=== PATIENT | female | born 2000 | race Two or more races ===

== ENCOUNTER → 2024-09-18 14:09 | Outpatient (CLI) | payer OTHER | END | disposition home or self-care (01) | LOC: PRENATAL 14:09 | PROVIDERS: ATTEND Obstetrics & Gynecology Maternal & Fetal Medicine | DX: O26.849 Uterine size-date discrepancy, unspecified trimester (principal); Z3A.16 16 weeks gestation of pregnancy ==

== ENCOUNTER 2024-10-23 15:31 | Outpatient (CLI) | payer OTHER | END 2024-10-23 15:32 | disposition home or self-care (01) | LOC: PRENATAL 15:31 | PROVIDERS: ATTEND Obstetrics & Gynecology Maternal & Fetal Medicine | DX: O44.00 Complete placenta previa NOS or without hemorrhage, unspecified trimester (principal); Z3A.21 21 weeks gestation of pregnancy ==

== ENCOUNTER 2024-11-26 16:52 | Outpatient (CLI) | payer OTHER | END 2024-11-26 17:47 | disposition home or self-care (01) | LOC: NST 16:52 | PROVIDERS: ATTEND Obstetrics & Gynecology | DX: Z3A.25 25 weeks gestation of pregnancy (principal) ==

== ENCOUNTER 2025-01-07 10:36 | Emergency (ER) | payer OTHER ==
[~2025-01-07] VITALS: Ht 157.5 cm; Wt 72.6 kg
[2025-01-07] MEDS ORDERED: PROTONIX20 MG PO (10:46)
[2025-01-07] MEDS ORDERED: ONDANSETRON ODT4 MG PO (10:46)
[2025-01-07] MEDS ORDERED: PRENATAL 19 CH1 EACH PO (10:47)
[2025-01-07] MEDS ORDERED: ONDANSETRON HCL 2 MG/ML VIAL IV ONE (11:30)
[2025-01-07] MEDS ORDERED: ACETAMINOPHEN 500 MG GEL..CAP PO ONE ×2 (11:30→11:49)
[2025-01-07] MEDS ORDERED: ONDANSETRON HCL 2 MG/ML VIAL ONE (11:48)
[2025-01-07 12:50] LABS: BASO % 0.3 % (0.1-1.2); EOS # 0.07 (0.04-0.54); EOS % 0.6 % (0.7-7.0); HEMATOCRIT 30.9 % (34.1-44.9); LYMPH # 1.22 (1.18-3.74); LYMPH % 11.1 % (19.3-53.1); MEAN CORPUSCULAR HEMOGLOBIN 29.5 pg (25.6-32.2); MONO # 1.02 (0.24-0.82); MONO % 9.3 % (4.7-12.5); NEUT # 8.44 (1.56-6.13); NEUT % 76.8 % (34.0-71.1); PLATELET COUNT 189 K/uL (163-369); RED BLOOD COUNT 3.52 M/uL (3.93-5.22); RED CELL DISTRIBUTION WIDTH 12.3 % (11.6-14.4)
[2025-01-07 12:55] LABS: HEMOGLOBIN 10.4 g/dL (11.2-15.7)
[2025-01-07 13:01] LABS: CALCIUM 8.4 mg/dL (8.5-10.1); CREATININE SERUM 0.48 mg/dL (0.55-1.02); GFR 157.58; POTASSIUM 3.75 mEq/L (3.5-5.1)
[2025-01-07 13:45] LABS: COVID-19 AG NEGATIVE (NEGATIVE); INFLUENZA A AG NEGATIVE (NEGATIVE)
[2025-01-07] MEDS ORDERED: AMOX1TAB5 PO (15:05)
[2025-01-07] MEDS ORDERED: ADULT TUSS100 MG/51 PO (15:05)
== END 2025-01-07 15:52 | disposition home or self-care (01) ==
LOC: ER 10:36
PROVIDERS: General Practice
DX: Z34.90 Encounter for supervision of normal pregnancy, unspecified, unspecified trimester (principal); Z3A.30 30 weeks gestation of pregnancy; J00 Acute nasopharyngitis [common cold]; Z20.822 Contact with and (suspected) exposure to COVID-19; Z88.6 Allergy status to analgesic agent

== ENCOUNTER 2025-01-09 15:26 | Outpatient (CLI) | payer OTHER ==
[~2025-01-09 15:26] MED LIST: ADULT TUSS100 MG/51 PO; AMOX1TAB5 PO; ONDANSETRON ODT4 MG PO; PRENATAL 19 CH1 EACH PO; PROTONIX20 MG PO
== END 2025-01-09 15:27 | disposition home or self-care (01) ==
LOC: PRENATAL 15:26
PROVIDERS: ATTEND Obstetrics & Gynecology Maternal & Fetal Medicine
DX: O26.849 Uterine size-date discrepancy, unspecified trimester (principal); O36.8199 Decreased fetal movements, unspecified trimester, other fetus; O99.019 Anemia complicating pregnancy, unspecified trimester; Z3A.32 32 weeks gestation of pregnancy

== ENCOUNTER 2025-01-21 13:53 | Outpatient (CLI) | payer OTHER ==
[2025-01-21 12:51] VITALS: BP 118/75
[2025-01-21] MEDS ORDERED: RINGERS SOLUTION,LACTATED 1,000 ML IV SCH (14:30)
[2025-01-21] MEDS ORDERED: BETAMETHASONE ACETATE,SOD PHOS 30 MG/5 ML ML ONE (14:41)
[2025-01-21] MEDS ORDERED: MAGNESIUM SULFATE IN WATER 0.04 GM/ML IV.SOLN IV ONE (14:42)
[2025-01-21 15:11] LABS: URINE APPEARANCE Clear; URINE BILIRRUBIN Negative (NEGATIVE); URINE BLOOD Negative; URINE COLOR Yellow; URINE GLUCOSE Negative (NEGATIVE); URINE KETONE Negative (NEGATIVE); URINE LEUKOCYTE Negative; URINE NITRATE Negative; URINE PROTEIN Negative (NEGATIVE); URINE UROBILINOGEN 0.2 E.U./dl
[2025-01-21 15:13] LABS: URINE BACTERIA 1932.6 uL (0.0-1933); URINE EPITHELIAL CELLS 53.4 uL (0.0-38.8); URINE WBC 21.3 uL (0.0-23.2)
[2025-01-21 15:18] LABS: BASO % 0.3 % (0.1-1.2); EOS # 0.09 (0.04-0.54); EOS % 0.8 % (0.7-7.0); HEMATOCRIT 29.5 % (34.1-44.9); HEMOGLOBIN 9.9 g/dL (11.2-15.7); LYMPH # 1.52 (1.18-3.74); LYMPH % 12.9 % (19.3-53.1); MEAN CORPUSCULAR HEMOGLOBIN 28.9 pg (25.6-32.2); MONO # 1.01 (0.24-0.82); MONO % 8.6 % (4.7-12.5); NEUT # 8.87 (1.56-6.13); NEUT % 75.6 % (34.0-71.1); PLATELET COUNT 184 K/uL (163-369); RED BLOOD COUNT 3.43 M/uL (3.93-5.22); RED CELL DISTRIBUTION WIDTH 12.2 % (11.6-14.4)
[2025-01-21 15:23] VITALS: BP 105/62
[2025-01-21 15:44] LABS: URINE RBC 1.9 uL (0.0-20.8)
[2025-01-21 19:27] VITALS: BP 108/67
== END 2025-01-21 19:27 | disposition home or self-care (01) ==
LOC: OBS/DEL 13:53
PROVIDERS: Obstetrics & Gynecology; ATTEND Obstetrics & Gynecology
DX: O26.853 Spotting complicating pregnancy, third trimester (principal); O26.849 Uterine size-date discrepancy, unspecified trimester; O36.8199 Decreased fetal movements, unspecified trimester, other fetus; O60.00 Preterm labor without delivery, unspecified trimester; Z3A.34 34 weeks gestation of pregnancy

== ENCOUNTER 2025-02-21 13:30 | Inpatient (IN) | payer OTHER ==
[~2025-02-21] VITALS: Ht 157.5 cm; Wt 73.9 kg
[2025-02-24] VITALS (9 sets, daily range): BP systolic 113–137; BP diastolic 51–79
[2025-02-24] MEDS ORDERED: RINGERS SOLUTION,LACTATED 1,000 ML IV SCH (04:45)
[2025-02-24 04:56] LABS: BASO % 0.2 % (0.1-1.2); EOS # 0.01 (0.04-0.54); EOS % 0.1 % (0.7-7.0); LYMPH # 1.38 (1.18-3.74); LYMPH % 11.1 % (19.3-53.1); MEAN PLATELET VOLUME 8.90 fl (9.4-12.4); MONO # 0.89 (0.24-0.82); MONO % 7.1 % (4.7-12.5); NEUT # 9.99 (1.56-6.13); NEUT % 80.3 % (34.0-71.1); RED CELL DISTRIBUTION WIDTH 15.3 % (11.6-14.4)
[2025-02-24 05:05] LABS: URINE APPEARANCE Clear; URINE BILIRRUBIN Negative (NEGATIVE); URINE BLOOD Large; URINE COLOR Yellow; URINE GLUCOSE Negative (NEGATIVE); URINE KETONE Negative (NEGATIVE); URINE LEUKOCYTE Small; URINE NITRATE Negative; URINE PROTEIN Trace (NEGATIVE); URINE UROBILINOGEN 1.0 E.U./dl
[2025-02-24 05:11] LABS: INR < 0.93; URINE BACTERIA 3690.1 uL (0.0-1933); URINE EPITHELIAL CELLS 65.2 uL (0.0-38.8); URINE WBC 140.4 uL (0.0-23.2)
[2025-02-24 05:12] LABS: URINE CAST 0.00 uL (0.0-1.40); URINE RBC 1.3 uL (0.0-20.8)
[2025-02-24 05:14] LABS: ALT/SGPT 17.0 U/L (12-78); AST/SGOT 12.0 U/L (15-37); BILIRUBIN TOTAL 0.24 mg/dL (0.3-1.2); BUN CREA RATIO 14.0 (7.0-25.0); CREATININE SERUM 0.44 mg/dL (0.55-1.02); GFR 174.23; GLOBULINA 3.6 G/DL (2.4-3.5); GLUCOSE FASTING 93.0 mg/dL (65-100); OSMOLALITY SERUM 275.0 MOSM/KG (275-295)
[2025-02-24] MEDS ORDERED: OXYTOCIN 500 ML IV ONE (08:15)
[2025-02-24] MEDS ORDERED: MORPHINE SULFATE 4 MG/ML VIAL IV PRN (12:15)
[2025-02-24] MEDS ORDERED: OXYTOCIN 1,000 ML IV SCH (21:30)
[2025-02-24] MEDS ORDERED: CHLORHEXIDINE GLUCONATE 120 ML BOTTLE TP SCH (21:30)
[2025-02-24] MEDS ORDERED: LIDOCAINE HCL 1% 20 ML VIAL IJ ONE (21:45)
[2025-02-25] VITALS: BP 111/69
[2025-02-25] MEDS ORDERED: ACETAMINOPHEN 500 MG GEL..CAP PO SCH
[2025-02-25 04:00] VITALS: BP 102/65
[2025-02-25 07:03] LABS: BASO % 0.2 % (0.1-1.2); EOS # 0.00 (0.04-0.54); EOS % 0.0 % (0.7-7.0); LYMPH # 1.19 (1.18-3.74); LYMPH % 4.8 % (19.3-53.1); MEAN PLATELET VOLUME 9.10 fl (9.4-12.4); MONO # 1.87 (0.24-0.82); MONO % 7.6 % (4.7-12.5); NEUT # 21.34 (1.56-6.13); NEUT % 86.6 % (34.0-71.1); RED CELL DISTRIBUTION WIDTH 15.6 % (11.6-14.4)
[2025-02-25 08:00] VITALS: BP 105/62
[2025-02-25 16:52] VITALS: BP 109/76
[2025-02-25 23:47] VITALS: BP 105/70
[2025-02-26 08:29] VITALS: BP 98/64
== END 2025-02-26 12:43 | disposition home or self-care (01) | DRG 807 ==
LOC: LDR 02-24 04:19 → OB/GYN 02-24 21:36
PROVIDERS: Student in an Organized Health Care Education/Training Program; ADMIT Obstetrics & Gynecology; ATTEND Obstetrics & Gynecology
PROC: 10E0XZZ Delivery of Products of Conception, External Approach (ICD-10-PCS; principal; 2025-02-24)
PROC: 0UQG7ZZ Repair Vagina, Via Natural or Artificial Opening (ICD-10-PCS; 2025-02-24)
PROC: 0UQMXZZ Repair Vulva, External Approach (ICD-10-PCS; 2025-02-24)
PROC: 4A1HXCZ Monitoring of Products of Conception, Cardiac Rate, External Approach (ICD-10-PCS; 2025-02-24)
DX: O71.4 Obstetric high vaginal laceration alone (principal); O71.82 Other specified trauma to perineum and vulva; Z37.0 Single live birth; Z3A.38 38 weeks gestation of pregnancy